=== PATIENT | male | born 1950 | race Caucasian/White ===

== ENCOUNTER 2018-11-04 07:18 | Day surgery (SDC) | payer MEDICARE, OTHER ==
[~2018-11-04 07:18] MED LIST: LIDOCAINE 2% (SDV) 5 ML INJ; PROPOFOL 200 MG INJ
== END 2018-11-04 14:59 | disposition home or self-care (01) ==
LOC: GIL 07:18
DX: Z12.11 Encounter for screening for malignant neoplasm of colon (principal); Z86.010 Personal history of colon polyps; I10 Essential (primary) hypertension
CPT/HCPCS: G0121